=== PATIENT | female | born 1985 | race Caucasian/White ===

== ENCOUNTER → 2023-02-07 | Outpatient (CLI) | payer BC ==
--- NOTE | 2023-02-07 09:54 | Diagnostic Imaging Report ---
INDICATION: Right breast density. Patient presents for additional views. COMPARISON: 01/23/2023. TECHNIQUE: Unilateral right 2D and 3D diagnostic mammography was performed. This included spot compression MLO views as well as 90 degree lateral views. FINDINGS: The right breast is heterogeneously dense, limiting the sensitivity of mammography. The density noted in the inferior right breast on the screening view resolves with additional views and most likely represented superimposed tissue. No underlying mass is identified. IMPRESSION: Additional views fail to demonstrate a discrete mass. The patient may return to routine annual screening mammography. ACR BI-RADS Category 1: Negative. Result letter will be mailed to the patient. Note: At least 10% of breast cancer is not imaged by mammography. Dictated by: Dictated on workstation # [id number]
== END ==
LOC: RAD 09:08
PROVIDERS: ATTEND Nurse Practitioner Women's Health
DX: R92.8 Other abnormal and inconclusive findings on diagnostic imaging of breast (principal)
CPT/HCPCS: 77065; G0279